=== PATIENT | female | born 1990 | race Caucasian/White ===

== ENCOUNTER 2017-04-29 22:05 | Observation (INO) | payer SELFPAY ==
[~2017-04-29] VITALS: Ht 162.6 cm; Wt 78.0 kg
[2017-04-29] MEDS ORDERED: ACETAMINOPHEN 500 MG TABLET PO ONE (23:45)
[2017-04-30] MEDS ORDERED: OxyCODONE HCL 5 MG IR TABLET PO ONE (00:15)
[2017-04-30 00:27] LABS: INFLUENZA TYPE B NEGATIVE FOR TYPE B (NEGATIVE)
[2017-04-30 00:29] LABS: INFLUENZA TYPE A POSITIVE FOR TYPE A (NEGATIVE)
[2017-04-30 00:54] VITALS: BP 112/69
== END 2017-04-30 00:50 | disposition home or self-care (01) ==
LOC: 4S 22:05
PROVIDERS: ADMIT Obstetrics & Gynecology; ATTEND Obstetrics & Gynecology
DX: O26.892 Other specified pregnancy related conditions, second trimester (principal); R51 Headache; O21.0 Mild hyperemesis gravidarum; O99.012 Anemia complicating pregnancy, second trimester; Z3A.24 24 weeks gestation of pregnancy
CPT/HCPCS: 59025; 87804; G0378 ×2